=== PATIENT | female | born 1970 | race Caucasian/White ===

== ENCOUNTER → 2017-01-05 | Outpatient (CLI) | payer OTHER ==
[~2017-01-05] MED LIST: IOHEXOL 300 MG/ML 75 ML VIAL. IV ONE
--- NOTE | 2017-01-05 17:44 | RAD ---
Procedure: Venous Lower Extremity right. Clinical information: Right leg pain and swelling mostly around the knee joint. Date of Service: 01/05/2017. Comparison: None available. Technique: Color flow Doppler and Doppler spectral waveform analysis of the right lower extremity venous system were acquired. In addition, compression, augmentation and response to Valsalva techniques were employed. Findings: The right lower extremity veins demonstrate normal caliber and wall thickness. Color flow Doppler demonstrates normal venous flow without intraluminal thrombus. There is normal venous compression and distal augmentation. Doppler spectral waveform demonstrates normal venous respiratory phasicity. Moderately large right knee joint effusion with internal echoes within the joint effusion. There is also a 4.8 x 4.1 x 1.7 cm right Cano's cyst Impression: 1. Normal venous duplex study of the right lower extremity. No evidence of deep venous thrombosis. 2. Moderate right knee joint effusion. 3. Complex 1.8 x 4.1 x 1.7 cm right Cano's cyst. Electronically signed by: Devika Barber MD (01/05/2017 5:41 PM) [id number]
--- NOTE | 2017-01-05 17:54 | RAD ---
Indication: Elevated d-dimer and right leg swelling. Axial imaging through the chest was performed after the administration of intravenous contrast and utilizing the CT angiography protocol. Multiplanar, 3-D and mip reformations were also performed. One or more of the following individualized dose reduction techniques were utilized for this examination: 1. Automated exposure control 2. Adjustment of the mA and/or kV according to patient size 3. Use of iterative reconstruction technique No prior studies are available for comparison. Evaluation of the pulmonary arterial system is without evidence of thromboembolism. No filling defects are identified. The thoracic aorta is normal caliber. No dissection is identified. No pericardial or pleural fluid is identified. Parenchymal evaluation is without evidence of consolidation or mass. There does appear to be some slightly interstitial nodular parenchymal pattern, indeterminate. The upper abdomen is unremarkable. A right paratracheal lymph node is prominent at 17 mm. No hilar lymphadenopathy is detected. IMPRESSION: 1. No evidence of pulmonary embolism or thoracic aortic dissection. 2. Nonspecific interstitial nodular parenchymal pattern, likely on an infectious or inflammatory basis. There is an enlarged right paratracheal lymph node which may be reactive. Follow-up could be performed. Electronically signed by: Gil Suresh MD (01/05/2017 5:51 PM) [facility]
== END | disposition home or self-care (01) ==
LOC: US 16:47
PROVIDERS: ATTEND Nurse Practitioner Family
DX: M71.21 Synovial cyst of popliteal space [Baker], right knee (principal); M79.89 Other specified soft tissue disorders; R59.9 Enlarged lymph nodes, unspecified; R79.1 Abnormal coagulation profile
CPT/HCPCS: 71275; 93971; Q9967

== ENCOUNTER → 2017-01-05 | Outpatient (CLI) | payer OTHER ==
--- NOTE | 2017-01-05 15:43 | RAD ---
Indication pain. AP and lateral views of the right knee were obtained. There is medial joint space compartment narrowing and there are small osteophytes medially. There is a benign-appearing cystic lesion in the proximal tibia. This may be on a degenerative basis.. An acute bony finding is not seen. There is a moderately large joint effusion. There is patellofemoral narrowing. IMPRESSION: Degenerative change. No acute finding seen. Cystic lesion proximal tibial.
== END | disposition home or self-care (01) ==
LOC: DXRADRC 15:17
PROVIDERS: ATTEND Nurse Practitioner Family
DX: M17.11 Unilateral primary osteoarthritis, right knee (principal)
CPT/HCPCS: 73560

== ENCOUNTER → 2017-04-18 | Outpatient (CLI) | payer OTHER ==
--- NOTE | 2017-04-18 12:43 | RAD ---
Indication bilateral hip pain. Low back pain. AP and lateral views of the lumbar spine were obtained as well as a coned view targeted to the lumbosacral junction. There are significant degenerative changes at L2-3. There is disc space narrowing at this level with some associated degenerative endplate changes. Osteophytes are seen anteriorly and posteriorly at this level. Slight disc space narrowing is seen at L1-2. Some degenerative changes also seen, manifested as osteophyte formation, in the visualized lower thoracic spine. An acute finding is not seen. Alignment is unremarkable. There is very slight wedging of L1. Slight wedging of lower thoracic vertebral body segments is probably chronic IMPRESSION: Degenerative changes in the lumbar spine predominantly centered at L2-3
--- NOTE | 2017-04-18 15:32 | RAD ---
Indication: Bilateral hip pain and low back pain for 4 months. No known injury. Technique: Lateral view view of each hip and an AP pelvis is provided. No comparison is available. Findings: Bony pelvis is intact. There is no fracture or dislocation in either hip. There is no joint space narrowing. Presumed ligation clips are noted in the pelvis. Vascular calcifications are noted. Impression: Negative for fracture. No joint space narrowing or significant spurring in either hip apparent.
== END | disposition home or self-care (01) ==
LOC: DXRADRC 11:12
PROVIDERS: ATTEND Family Medicine
DX: M47.896 Other spondylosis, lumbar region (principal); M25.78 Osteophyte, vertebrae; M25.852 Other specified joint disorders, left hip; M25.851 Other specified joint disorders, right hip
CPT/HCPCS: 72100; 73521

== ENCOUNTER 2018-07-01 11:16 | Emergency (ER) | payer OTHER ==
[~2018-07-01] VITALS: Ht 160 cm; Wt 112.8 kg
[2018-07-01 11:50] VITALS: BP 128/69
[2018-07-01] MEDS ORDERED: TRAM50TA PO (11:50)
--- NOTE | 2018-07-01 14:03 | ED.ADGEN ---
Past History Past Medical History: Anxiety, Asthma, Dementia, Hypertension, Other Past Surgical History: , Tonsillectomy Alcohol Use: Occasionally Drug Use: None Adult General Chief Complaint Chief Complaint Abdominal wall pain HPI HPI Patient is [id number] female with history of mental abdominal wall hernia presents with persistent pain over ventral hernia site after cracking and popping a friend move the past 2 days. Patient denies bulging or mass in this region. No nausea vomiting diarrhea. No fever chills or sweats. On exam, the patient has a palpable non-incarcerated ventral hernia located left lateral abdomen and inferior to umbilicus. palpation to this area reproduces patient's complaints.[] Review of Systems Review of Systems Review symptoms as per history of present illness. All other review symptoms are negative. All other systems were reviewed and found to be within normal limits, except as documented in this note. Allergies Allergies Allergies Coded Allergies Type Severity Reaction Last Updated Verified azithromycin Allergy Unknown 01/05/17 Yes Physical Exam Physical Exam Constitutional: Well developed, well nourished, no acute distress, non-toxic appearance. [] HENT: Normocephalic, atraumatic, bilateral external ears normal, oropharynx moist, no oral exudates, nose normal. [] Eyes: PERRLA, EOMI, conjunctiva normal, no discharge. [] Neck: Normal range of motion, no tenderness, supple, no stridor. [] Cardiovascular:Heart rate regular rhythm, no murmur [] Lungs & Thorax: Bilateral breath sounds clear to auscultation [] Abdomen: Bowel sounds normal, soft, obese, quarter size hernia defect palpated to left abdomen lateral and inferior to the umbilicus. No bulging or herniated mass appreciated in this region [] Neurologic: Alert and oriented X 3, normal motor function, normal sensory function, no focal deficits noted. [] Psychologic: Affect normal, judgement normal, mood normal. [] Current Patient Data Vital Signs Vital Signs Date Time Temp Pulse Resp B/P (MAP) Pulse Ox O2 Delivery O2 Flow Rate FiO2 07/01/18 11:16 97.9 77 16 97 Room Air EKG EKG [] Radiology/Procedures Radiology/Procedures [] Course & Med Decision Making Course & Med Decision Making Pertinent Labs and Imaging studies reviewed. (See chart for details) [Chronic abdominal wall with non-incarcerated hernia. ] Final Impression Final Impression [1. Abdominal wall pain] Natasha Disclaimer Dragon Disclaimer This electronic medical record was generated, in whole or in part, using a voice recognition dictation system. JOAHNA GARCIA DO Jul 01, 2018 14:03
== END 2018-07-01 11:55 | disposition home or self-care (01) ==
LOC: ER 11:16
DX: R10.9 Unspecified abdominal pain (principal); G89.29 Other chronic pain; K43.9 Ventral hernia without obstruction or gangrene; J45.909 Unspecified asthma, uncomplicated; I10 Essential (primary) hypertension; Z98.890 Other specified postprocedural states; Z88.1 Allergy status to other antibiotic agents
CPT/HCPCS: 99283

== ENCOUNTER → 2019-02-05 | Outpatient (CLI) | payer MEDICAID ==
[~2019-02-05] MED LIST changes: -IOHEXOL 300 MG/ML 75 ML VIAL. IV ONE; +TRAM50TA PO
--- NOTE | 2019-02-05 16:28 | RAD ---
EXAM: Lumbar spine, 3 views. HISTORY: Pain. COMPARISON: 04/18/2017. FINDINGS: 3 views of the lumbar spine are obtained. There is minimal S-shaped thoracolumbar scoliosis. There is minimal lumbar hyperlordosis. There is degenerative endplate remodeling with disc space narrowing and osteophytosis at L2-L3. There is additional anterior predominant endplate remodeling and Schmorl's node formation within the visualized thoracic spine. There is chronic mild anterior wedging of L1, likely degenerative in etiology. There is facet arthropathy predominantly at the lumbosacral junction. There are fallopian tube closure devices overlying the pelvis. IMPRESSION: 1. Degenerative change primarily at L2-L3. This is similar compared to the prior study. 2. No acute osseous finding. Electronically signed by: Cecille Maldonado MD (02/05/2019 4:25 PM) [facility]
== END | disposition home or self-care (01) ==
LOC: DXRAD 15:26
PROVIDERS: ATTEND Family Medicine
DX: M47.816 Spondylosis without myelopathy or radiculopathy, lumbar region (principal); M48.061 Spinal stenosis, lumbar region without neurogenic claudication; M41.85 Other forms of scoliosis, thoracolumbar region; M12.88 Other specific arthropathies, not elsewhere classified, other specified site; M51.44 Schmorl's nodes, thoracic region
CPT/HCPCS: 72100

== ENCOUNTER 2019-07-02 18:43 | Emergency (ER) | payer MEDICAID ==
[~2019-07-02] VITALS: Ht 160 cm; Wt 118.0 kg
--- NOTE | 2019-07-02 18:46 | PHYS DOC ---
Past History Past Medical History: Anxiety, Asthma, Dementia, Hypertension, Other Past Surgical History: , Tonsillectomy Alcohol Use: Occasionally Drug Use: None Adult General Chief Complaint Chief Complaint: SHOULDER INJURY... " I was walkng my dog "Iris"...he is always in a big hurry to go nowhere... And he jerked my right arm really hard and: Right shoulder and back to feel like it was tearing loose muscles... It hurt so bad to move... " HPI HPI Patient is a 48 year old female who presents with above hx and complaints of right arm and shoulder injury. Injury occurred when her dog 'Iris' jerked her arm on the leash. Injury occurred occurred 2 days ago. Patient states pain has not improved. Patient localized pain in deltoid and right trapezius. Deltoid sensation is intact.. Distal neurovascular is equal in right hand as it is in left hand. Patient denies previous injury to this shoulder area patient. I get him history of immunosuppression. No recent travel. No other injuries. Patient is right-hand dominant. Review of Systems Review of Systems Constitutional: Denies fever or chills [] Eyes: Denies change in visual acuity, redness, or eye pain [] HENT: Denies nasal congestion or sore throat [] Respiratory: Denies cough or shortness of breath [] Cardiovascular: No additional information not addressed in HPI [] GI: Denies abdominal pain, nausea, vomiting, bloody stools or diarrhea [] : Denies dysuria or hematuria [] Musculoskeletal: Complaints are right shoulder and arm injury Integument: Denies rash or skin lesions [] Neurologic: Denies headache, focal weakness or sensory changes [] Endocrine: Denies polyuria or polydipsia [] All other systems were reviewed and found to be within normal limits, except as documented in this note. Family History Family History Noncontributory presentation Current Medications Current Medications See nursing for home medications Allergies Allergies Allergies Coded Allergies Type Severity Reaction Last Updated Verified azithromycin Allergy Unknown 01/05/17 Yes Physical Exam Physical Exam Constitutional: Moderate acute distress, non-toxic appearance. [] HENT: Normocephalic, atraumatic, bilateral external ears normal, oropharynx moist, no oral exudates, nose normal. [] Eyes: PERRLA, EOMI, conjunctiva normal, no discharge. [] Neck: Normal range of motion, no tenderness, supple, no stridor. [] Cardiovascular:Heart rate regular rhythm, no murmur [] Lungs & Thorax: Bilateral breath sounds equal apex scattered wheezes on auscultation [] Abdomen: Bowel sounds normal, soft, no tenderness, no masses, no pulsatile masses. Surgery scars. Obese. Skin: Warm, dry, no erythema, no rash. [] Back: No tenderness, no CVA tenderness. [] Extremities: No tenderness, no cyanosis, no clubbing, ROM intact, no edema. [] Except findings in right shoulder and upper arm as per history of present illness Neurologic: Alert and oriented X 3, normal motor function, normal sensory function, no focal deficits noted. [] Psychologic: Affect anxious, judgement normal, mood normal. [] EKG EKG [] Radiology/Procedures Radiology/Procedures [address] [address] IMAGING REPORT Signed PATIENT: CASEY VELEZ ACCOUNT: [id number] : 1970 LOCATION: ER AGE: 48 SEX: F EXAM STATUS: DEP ER ORD. PHYSICIAN: ИВАН BROWN MD REASON: injury walking her dog PROCEDURE: SHOULDER 2+V RIGHT Study: SHOULDER 2+V RIGHT Indication: Injury. Comparison: None. Findings: Maintained AC and glenohumeral joint alignment. Minimal arthrosis at the AC joint. No acute fracture. Impression: No acute osseous abnormality seen at the right shoulder. Electronically signed by: LORI BELLA MD (07/02/2019 11:52 PM) [facility] [id number] DICTATED AND SIGNED BY: LORI BELLA MD DATE: 07/02/19 2165 CC: ИВАН BROWN MD; DIEUDONNE VICK MD ~ [][address] [address] IMAGING REPORT Signed PATIENT: CASEY VELEZ ACCOUNT: [id number] : 1970 LOCATION: ER AGE: 48 SEX: F EXAM STATUS: DEP ER ORD. PHYSICIAN: ИВАН BROWN MD REASON: injury walking her dog PROCEDURE: CHEST PA & LATERAL CHEST PA LATERAL Technique: PA and lateral views of the chest were obtained. Clinical History: Comparison: None. Findings: The heart and pulmonary vasculature appear within normal limits. The lungs are clear. The pleural margins are clear. Impression: No acute chest process is seen. Electronically signed by: Mery Madrigal III, MD (07/02/2019 8:56 PM) [facility] DICTATED AND SIGNED BY: MERY MADRIGAL III, MD DATE: 07/02/192055 CC: ИВАН BROWN MD; DIEUDONNE VICK MD ~ Course & Med Decision Making Course & Med Decision Making Pertinent Labs and Imaging studies reviewed. (See chart for details) Patient use ice packs has needed. Rest arm. Wear sling. Take arm out of sling 4 times a day and do passive range of motion. Follow-up primary care. Take Tylenol and ibuprofen for pain. For marked pain may take Vicoprofen. Patient return if any concerns. Impression: 1. Right shoulder sprain strain [] Dragon Disclaimer Dragon Disclaimer This electronic medical record was generated, in whole or in part, using a voice recognition dictation system. Departure Departure: Disposition: 01 HOME/RESIDENCE PRIOR TO ADM Condition: STABLE Referrals: DIEUDONNE VICK MD (PCP) Scripts Hydrocodone/Ibuprofen (HYDROCODONE-IBUPROFEN 7.5-200 ) 1 Each Tablet 1 TAB PO PRN Q6HRS PRN for PAIN, #30 TAB 0 Refills Prov: ИВАН BROWN MD 07/02/19 Dragon Disclaimer This chart was dictated in whole or in part using Voice Recognition software in a busy, high-work load, and often noisy Emergency Department environment. It may contain unintended and wholly unrecognized errors or omissions. ИВАН BROWN MD Jul 02, 2019 18:46
[2019-07-02] MEDS ORDERED: ORPHENADRINE CITRATE 60 MG/2 ML VIAL. IM ONE (19:15)
[2019-07-02] MEDS ORDERED: KETOROLAC 60 MG/2 ML VIAL. IM ONE (19:15)
[2019-07-02] MEDS ORDERED: HYDR-1179 PO (20:23)
[2019-07-02 20:36] VITALS: BP 120/82
--- NOTE | 2019-07-02 20:59 | RAD ---
CHEST PA LATERAL Technique: PA and lateral views of the chest were obtained. Clinical History: Comparison: None. Findings: The heart and pulmonary vasculature appear within normal limits. The lungs are clear. The pleural margins are clear. Impression: No acute chest process is seen. Electronically signed by: Fili Ohara III, MD (07/02/2019 8:56 PM) [facility]
--- NOTE | 2019-07-02 23:55 | RAD ---
Study: SHOULDER 2+V RIGHT Indication: Injury. Comparison: None. Findings: Maintained AC and glenohumeral joint alignment. Minimal arthrosis at the AC joint. No acute fracture. Impression: No acute osseous abnormality seen at the right shoulder. Electronically signed by: LORI BELLA MD (07/02/2019 11:52 PM) [facility]
== END 2019-07-02 20:36 | disposition home or self-care (01) ==
LOC: ER 18:43
DX: S43.401A Unspecified sprain of right shoulder joint, initial encounter (principal); F41.9 Anxiety disorder, unspecified; J45.909 Unspecified asthma, uncomplicated; I10 Essential (primary) hypertension; Z88.1 Allergy status to other antibiotic agents; W54.1XXA Struck by dog, initial encounter; Y93.K1 Activity, walking an animal; Y92.89 Other specified places as the place of occurrence of the external cause; Y99.8 Other external cause status
CPT/HCPCS: 71046; 73030; 96372; 99284; J1885; J2360

== ENCOUNTER 2019-08-16 13:28 | Emergency (ER) | payer MEDICAID ==
[~2019-08-16] VITALS: Ht 160 cm; Wt 118.0 kg
[~2019-08-16 13:28] MED LIST changes: +HYDR-1179 PO
[2019-08-16] MEDS ORDERED: HYDR-3165 PO (13:55)
[2019-08-16] MEDS ORDERED: CYCL-331 PO (13:55)
[2019-08-16] MEDS ORDERED: PRED50TA PO (13:55)
--- NOTE | 2019-08-16 13:55 | PHYS DOC ---
Past History Past Medical History: Anxiety, Asthma, Dementia, Hypertension, Other Past Surgical History: , Tonsillectomy Alcohol Use: Occasionally Drug Use: None Adult General Chief Complaint Chief Complaint: BACK PAIN OR INJURY [facility] 49-year-old female presents via EMS with low back pain. The patient fell yesterday pushing a cart for driveway. She felt her knees. She tripped and fell again today going down to her knees and this pulled her back a second time. She now has moderate low back pain. She is complaining of pain over the bilateral sacroiliac joints. She is able to walk. She denies significant knee pain or bruising. The patient is a smoker. He denies diabetes. No significant history of previous low back problems. Review of Systems Review of Systems Constitutional: Denies fever or chills [] Eyes: Denies change in visual acuity, redness, or eye pain [] HENT: Denies nasal congestion or sore throat [] Respiratory: Denies cough or shortness of breath [] Cardiovascular: No additional information not addressed in HPI [] GI: Denies abdominal pain, nausea, vomiting, bloody stools or diarrhea [] : Denies dysuria or hematuria [] Musculoskeletal: Low back pain[] Integument: Denies rash or skin lesions [] Neurologic: Denies headache, focal weakness or sensory changes [] Endocrine: Denies polyuria or polydipsia [] All other systems were reviewed and found to be within normal limits, except as documented in this note. Allergies Allergies Allergies Coded Allergies Type Severity Reaction Last Updated Verified azithromycin Allergy Unknown 01/05/17 Yes Physical Exam Physical Exam Constitutional: Well developed, morbid obesity, well nourished, no acute distress, non-toxic appearance. [] HENT: Normocephalic, atraumatic, bilateral external ears normal, oropharynx moist, no oral exudates, nose normal. [] Eyes: PERRLA, EOMI, conjunctiva normal, no discharge. [] Neck: Normal range of motion, no tenderness, supple, no stridor. [] Cardiovascular:Heart rate regular rhythm, no murmur [] Lungs & Thorax: Bilateral breath sounds clear to auscultation [] Abdomen: Bowel sounds normal, soft, no tenderness, no masses, no pulsatile masses. [] Skin: Warm, dry, no erythema, no rash. [] Back: No tenderness over the bony prominences of the lumbar back. Bilateral sacroiliac tenderness.[] Extremities: No tenderness, no cyanosis, no clubbing, ROM intact, no edema. [] Neurologic: Alert and oriented X 3, normal motor function, normal sensory function, no focal deficits noted. [] Psychologic: Affect normal, judgement normal, mood normal. [] Current Patient Data Vital Signs Vital Signs Date Time Temp Pulse Resp B/P (MAP) Pulse Ox O2 Delivery O2 Flow Rate FiO2 08/16/19 13:40 98.3 77 18 96/66 (76) 94 Room Air EKG EKG [] Radiology/Procedures Radiology/Procedures [] Course & Med Decision Making Course & Med Decision Making Pertinent Labs and Imaging studies reviewed. (See chart for details) Patient appears to have bilateral sacroiliitis. I will treat her with 3 days of prednisone 50 mg, Flexeril, and a short course of [place]. I will give her Flexeril and [place] in the ER. She is stable for discharge at this time. [] Dragon Disclaimer Dragon Disclaimer This electronic medical record was generated, in whole or in part, using a voice recognition dictation system. Departure Departure: Impression: Primary Impression: Sacroiliac dysfunction Disposition: 01 HOME, SELF-CARE Condition: STABLE Referrals: DIEUDONNE VICK MD (PCP) Patient Instructions: Sacroiliac Joint Dysfunction Scripts Prednisone (PREDNISONE) 50 Mg Tablet 1 TAB PO DAILY for low back pain for 3 Days, #3 TAB Prov: JOHANA PHIPPS DO 08/16/19 Hydrocodone Bit/Acetaminophen (NORCO 5-325 TABLET) 1 Each Tablet 1 TAB PO PRN Q6HRS PRN for PAIN, #10 TAB 0 Refills Prov: JOHANA PHIPPS DO 08/16/19 Cyclobenzaprine Hcl (CYCLOBENZAPRINE HCL) 10 Mg Tablet 1 TAB PO TID PRN for MUSCLE SPASMS, #30 TAB Prov: JOHANA PHIPPS DO 08/16/19 JOHANA PHIPPS DO Aug 16, 2019 13:55
[2019-08-16 14:15] VITALS: BP 96/66
[2019-08-16] MEDS ORDERED: CYCLOBENZAPRINE 10 MG TABLET. PO ONE (14:15)
[2019-08-16] MEDS ORDERED: HYDROcodone/APAP 5/325MG 1 TAB TABLET PO ONE (14:15)
== END 2019-08-16 14:22 | disposition home or self-care (01) ==
LOC: ER 13:28
DX: M53.3 Sacrococcygeal disorders, not elsewhere classified (principal); J45.909 Unspecified asthma, uncomplicated; I10 Essential (primary) hypertension; Z88.1 Allergy status to other antibiotic agents; Z90.89 Acquired absence of other organs
CPT/HCPCS: 99283

== ENCOUNTER 2019-08-29 14:10 | Emergency (ER) | payer MEDICAID ==
[~2019-08-29] VITALS: Ht 160 cm; Wt 118.7 kg
[~2019-08-29 14:10] MED LIST changes: +CYCL-331 PO; +HYDR-3165 PO; +PRED50TA PO
--- NOTE | 2019-08-29 14:30 | PHYS DOC ---
Past History Past Medical History: Anxiety, Asthma, Dementia, Hypertension, Other Past Surgical History: , Tonsillectomy Alcohol Use: Occasionally Drug Use: None Adult General Chief Complaint Chief Complaint: MECHANICAL FALL HPI HPI Patient presents to the emergency department for evaluation. She states yesterday when walking across a street she lost her balance and fell down, landing on her knees bilaterally. She complains of bilateral knee pain, right greater than left. She denies serious head injury, neck pain, back injury, or loss of consciousness. She denies any numbness or weakness. She is able to ambulate, but palpation and movement of her knees worsen her pain. There are no alleviating factors to her symptoms. She did take 800 mg of ibuprofen prior to arrival. Her last tetanus was within the past year she reports. Review of Systems Review of Systems Constitutional: Denies fever or chills [] Eyes: Denies change in visual acuity, redness, or eye pain [] HENT: Denies nasal congestion or sore throat [] Respiratory: Denies cough or shortness of breath [] Cardiovascular: NThe patient denies any shortness of breath, chest pain, palpitations, or orthopnea [] GI: Denies abdominal pain, nausea, vomiting, bloody stools or diarrhea [] : Denies dysuria or hematuria [] Musculoskeletal: Denies back pain or joint pain, other than as noted in the history of present illness [] Integument: Denies rash or skin lesions [] Neurologic: Denies headache, focal weakness or sensory changes [] Allergies Allergies Allergies Coded Allergies Type Severity Reaction Last Updated Verified azithromycin Allergy Unknown 01/05/17 Yes Physical Exam Physical Exam PHYSICAL EXAM: HEENT: Atruamatic NECK: Supple, normal ROM, non-tender. CARDIAC: Regular Rate and Rhythm LUNGS: Clear Bilaterally EXTREMITIES: There is mild tenderness to palpation to the knees bilaterally, right greater than left, without focal bony tenderness to palpation, deformity, or significant soft tissue swelling. There is full range of motion in the knees bilaterally, with flexion and extension intact. Straight leg raise is normal bilaterally. The patient is ambulatory. Distal PMS is intact. There are superficial scratches, minor abrasions, on the anterior knees bilaterally. The remainder the extremities are atraumatic. BACK: There is no tenderness to palpation to the cervical, thoracic, or lumbar spine spine. EKG EKG [] Radiology/Procedures Radiology/Procedures PROCEDURE: KNEE BILAT 3V KNEE BILAT 3V History: Fall. Pain. Technique: 3 views bilateral knees. Comparison: January 05, 2017 Findings: Left knee: Normal alignment. No fracture. Moderate tricompartment knee DJD. Posterior calcified loose body. Vascular calcifications. No significant knee joint effusion. Anterior knee soft tissue swelling. Right knee: Lytic lesion within the posterior proximal right tibia with well-defined sclerotic rim measures 3.2 x 3.0 cm, unchanged compared to prior. Normal alignment. No fracture. Moderate medial patellofemoral compartment DJD. Vascular calcifications. No significant knee joint effusion. Impression: 1. No acute osseous abnormality. 2. Moderate bilateral knee DJD with calcified intra-articular loose body on the left. 3. Well-defined lytic lesion with sclerotic rim within the proximal right tibia, favor giant cell tumor, unchanged. Course & Med Decision Making Course & Med Decision Making Pertinent Imaging studies reviewed. (See chart for details) []Patient remains stable. I discussed test results, the need for close orthopedic follow-up, and return precautions. Dragon Disclaimer Dragon Disclaimer This electronic medical record was generated, in whole or in part, using a voice recognition dictation system. Departure Departure: Impression: Primary Impression: Knee contusion Disposition: HOME, SELF-CARE Condition: STABLE Referrals: DIEUDONNE VICK MD (PCP) Patient Instructions: Contusion Additional Instructions: Ibuprofen 400-600 mg every 6 hours may help improve your symptoms. Applying ice to the affected area may help improve your symptoms. Follow-up with orthopedics at [facility], call [phone] to schedule an appointment. TOMASA RODAS MD Aug 29, 2019 14:30
--- NOTE | 2019-08-29 15:24 | RAD ---
KNEE BILAT 3V History: Fall. Pain. Technique: 3 views bilateral knees. Comparison: January 05, 2017 Findings: Left knee: Normal alignment. No fracture. Moderate tricompartment knee DJD. Posterior calcified loose body. Vascular calcifications. No significant knee joint effusion. Anterior knee soft tissue swelling. Right knee: Lytic lesion within the posterior proximal right tibia with well-defined sclerotic rim measures 3.2 x 3.0 cm, unchanged compared to prior. Normal alignment. No fracture. Moderate medial patellofemoral compartment DJD. Vascular calcifications. No significant knee joint effusion. Impression: 1. No acute osseous abnormality. 2. Moderate bilateral knee DJD with calcified intra-articular loose body on the left. 3. Well-defined lytic lesion with sclerotic rim within the proximal right tibia, favor giant cell tumor, unchanged. Electronically signed by: Thierry Juares DO (08/29/2019 3:21 PM) [id number]
[2019-08-29 15:59] VITALS: BP 117/64
== END 2019-08-29 16:03 | disposition home or self-care (01) ==
LOC: ER 15:48
DX: S80.01XA Contusion of right knee, initial encounter (principal); S80.02XA Contusion of left knee, initial encounter; F41.9 Anxiety disorder, unspecified; J45.909 Unspecified asthma, uncomplicated; F03.90 Unspecified dementia, unspecified severity, without behavioral disturbance, psychotic disturbance, mood disturbance, and anxiety; I10 Essential (primary) hypertension; Z88.1 Allergy status to other antibiotic agents; W18.39XA Other fall on same level, initial encounter; Y93.01 Activity, walking, marching and hiking; Y92.488 Other paved roadways as the place of occurrence of the external cause; Y99.8 Other external cause status
CPT/HCPCS: 73562; 99283

== ENCOUNTER → 2019-12-26 | Outpatient (CLI) | payer MEDICAID ==
--- NOTE | 2019-12-26 11:11 | RAD ---
DATE: 12/26/2019 9:53 AM EXAM: DIGITAL DIAGNOSTIC BILATERAL, BREAST ultrasound RIGHT HISTORY: 49-year-old woman due for screening presents with palpable tenderness in the medial right breast. COMPARISON: None available. Bilateral full field craniocaudal and mediolateral oblique images were obtained using digital technique. A cleavage view was also obtained.. This study was interpreted with the benefit of Computerized Aided Detection (CAD). Targeted ultrasound of the areas of patient reported palpable tenderness was also performed. FINDINGS: Breast Density: FATTY The Breast Parenchyma is primarily fatty replaced. Breast parenchyma level density A. Patient's areas of palpable tenderness on self exam are marked with BBs at the medial inferior right breast, and in the presternal adipose tissue. No suspicious masses, microcalcifications or architectural distortion is present to suggest malignancy in either breast. There is no mammographic correlate to the area of palpable tenderness as reported by the patient on self exam. The visualized axillae are unremarkable. IMPRESSION: No mammographic evidence of malignancy. BI-RADS CATEGORY: 1 NEGATIVE RECOMMENDED FOLLOW-UP: 12M 12 MONTH FOLLOW-UP Annual screening mammography is recommended, unless clinically indicated sooner based on symptoms or change in physical exam. Recommend clinical management of patient's reported aneurysm palpable tenderness. PQRS compliance statement: Patient information was entered into a reminder system with a target due date 12/26/2020 for the next mammogram. Mammography is a sensitive method for finding small breast cancers, but it does not detect them all and is not a substitute for careful clinical examination. A negative mammogram does not negate a clinically suspicious finding and should not result in delay in biopsying a clinically suspicious abnormality. "Our facility is accredited by the [employer] Mammography Program."
== END ==
LOC: MAMMO 09:27
PROVIDERS: ATTEND Family Medicine
DX: N63.14 Unspecified lump in the right breast, lower inner quadrant (principal)
CPT/HCPCS: 76641; 77066

== ENCOUNTER → 2020-02-06 | Outpatient (CLI) | payer MEDICAID ==
--- NOTE | 2020-02-06 18:09 | RAD ---
Bilateral knees 3 views each INDICATION: Bilateral knee pain. Comparison 08/29/2019 bilateral knee x-rays TECHNIQUE: AP and lateral views of the bilateral knees were obtained. FINDINGS: Right knee shows marked medial compartment joint space narrowing and large subchondral cysts in the medial tibial spine and at the lateral tibial plateau. Subchondral cysts are also suggested in the lateral aspect of the patella. No fracture or aggressive osseous lesions are seen no joint effusion. Alignment is otherwise unremarkable. Soft tissues show incidental arterial calcifications. Left knee shows medial compartment joint space narrowing and bulky osteophytes on the medial femoral condyle. Smaller osteophytes in the lateral tibial plateau are seen along with early subchondral cystic change in the lateral tibial plateau. The lateral view shows marked patellofemoral joint space narrowing and osteophytic spurring at the superior pole of the patella. There is a large 1.5 cm loose body in the posterior knee. Arterial calcifications are present. IMPRESSION: Bilateral multicompartment degenerative changes affecting the patellofemoral compartment to the greatest extent in the left knee and the medial compartment to the greatest extent in the right knee Electronically signed by: Milana Leonard MD (02/06/2020 6:06 PM) [id number]
== END ==
LOC: DXRAD 15:34
PROVIDERS: ATTEND Family Medicine
DX: M17.0 Bilateral primary osteoarthritis of knee (principal); M25.762 Osteophyte, left knee; M25.761 Osteophyte, right knee
CPT/HCPCS: 73560

== ENCOUNTER 2020-04-05 20:21 | Emergency (ER) | payer MEDICAID ==
[~2020-04-05] VITALS: Ht 160 cm; Wt 124.2 kg
--- NOTE | 2020-04-05 20:44 | PHYS DOC ---
Past History Past Medical History: Arthritis, Dementia, Hypertension, Other Additional Past Medical Histor: scoliosis Past Surgical History: , Tonsillectomy Alcohol Use: None Drug Use: None General Adult EDM: Chief Complaint: KNEE INJURY HPI: HPI: ".. I slipped and fell on both of my knees..I already.. have bad knees.. and chronic pain in them.. they say I need knee joint replacement..." Patient is a 49 year old female who presents with above hx and in increased bilateral knee pain after fall and hitting both knees on the floor. Patient has been ambulatory since the fall but complains of increased pain in both knees. Patient is able to do straight leg lift. Pain tonight appears to be primarily in patella. Does have crepitation on range of motion. Patient does have a history of severe degenerative joint changes in both knees. Has been follow-up primary however is not complete follow-up with orthopedics for possible evaluat ion for knee replacement. Distal neurovascular appears grossly intact. No recent travel. No specific ill contacts. Patient normally follows with Dr. Munson. Review of Systems: Review of Systems: Constitutional: Denies fever or chills Eyes: Denies change in visual acuity HENT: Denies nasal congestion or sore throat Respiratory: Denies cough or shortness of breath Cardiovascular: Denies chest pain or edema GI: Denies abdominal pain, nausea, vomiting, bloody stools or diarrhea : Denies dysuria Musculoskeletal: Complains of increased knee pain after fall. History of chronic degenerative joint changes and knee pain Integument: Denies rash Neurologic: Denies headache, focal weakness or sensory changes Endocrine: Denies polyuria or polydipsia Lymphatic: Denies swollen glands Psychiatric: Denies depression or anxiety Heart Score: Risk Factors: Risk Factors: DM, Current or recent (<one month) smoker, HTN, HLP, family history of CAD, obesity. Risk Scores: Score 0 - 3: 2.5% MACE over next 6 weeks - Discharge Home Score 4 - 6: 20.3% MACE over next 6 weeks - Admit for Clinical Observation Score 7 - 10: 72.7% MACE over next 6 weeks - Early Invasive Strategies Family History: Family History: Noncontributory Current Medications: Current Meds: Current Medications Medications (Trade) Dose Ordered Sig/Maria Dolores Start Time Stop Time Status Last Admin Dose Admin Morphine Sulfate (Morphine 10mg Syringe) 10 mg 1X ONCE 04/05/20 20:45 04/05/20 20:46 UNV Allergies: Allergies: Allergies Coded Allergies Type Severity Reaction Last Updated Verified azithromycin Allergy Unknown 01/05/17 Yes Physical Exam: PE: Constitutional: Moderate acute distress, non-toxic appearance. [] HENT: Normocephalic, atraumatic, bilateral external ears normal, oropharynx moist, no oral exudates, nose normal. [] Eyes: PERRLA, EOMI, conjunctiva normal, no discharge. [] Neck: Normal range of motion, no tenderness, supple, no stridor. [] Cardiovascular:Heart rate regular rhythm, no murmur. PMI to the left Lungs & Thorax: Bilateral breath sounds good apex with few scattered wheezes on auscultation [] Abdomen: Bowel sounds normal, soft, no tenderness, no masses, no pulsatile masses. Obese. Old surgery scar Skin: Warm, dry, no erythema, no rash. Poor turgor Back: No tenderness, no CVA tenderness. Scoliosis Extremities: Bilateral knee tenderness, no cyanosis, no clubbing, guarded range of motion in knees due to pain, mild bilateral knee edema. [] Crepitation with range of motion of the knees. Keep but can do straight leg lift. Patient is ambulatory. Neurologic: Alert and oriented X 3, normal motor function, normal sensory function, no focal deficits noted. [] Psychologic: Affect anxious, judgement normal, mood normal. [] Current Patient Data: Vital Signs: Vital Signs Date Time Temp Pulse Resp B/P (MAP) Pulse Ox O2 Delivery O2 Flow Rate FiO2 04/05/20 20:25 98.0 84 18 151/95 (113) 98 Room Air EKG: EKG: [] Radiology/Procedures: Radiology/Procedures: [][address] [address] IMAGING REPORT Signed PATIENT: CASEY VELEZ ACCOUNT: [id number] : 1970 LOCATION: ER AGE: 49 SEX: F EXAM STATUS: DEP ER ORD. PHYSICIAN: ИВАН BROWN MD REASON: fall PROCEDURE: KNEE BILAT 4V KNEE BILAT 4V History: Reason: fall / Spl. Instructions: / History: Technique: 3 views bilateral knees. Comparison: February 06, 2020 Findings: Right knee: Well-defined lytic lesion within the proximal tibia multilobulated with sclerotic rim, unchanged. Normal alignment. No fracture. Moderate tricompartment right knee degenerative changes most prominent within the medial and patellofemoral compartments. No significant knee joint effusion. Vascular calcifications. Left knee: Normal alignment. No fracture. Moderate tricompartment left knee DJD most prominent in medial patellofemoral compartment. No significant knee joint effusion. Vascular calcifications. Impression: 1. No acute osseous abnormality. 2. Moderate tricompartment bilateral knee DJD, unchanged. 3. Well-defined lytic lesion within the right proximal tibia, unchanged. Electronically signed by: Thierry Juares DO (04/05/2020 9:59 PM) [facility] DICTATED AND SIGNED BY: THIERRY JUARES DO DATE: 04/05/202158 CC: ИВАН BROWN MD; DIEUDONNE MUNSON MD ~ Course & Med Decision Making: Course & Med Decision Making Pertinent Labs and Imaging studies reviewed. (See chart for details) Patient is ice packs as needed. May take Tylenol and ibuprofen for pain. May take Vicoprofen for marked discomfort. Must follow-up with primary care. Get referral for orthopedic evaluation. Wear Lavelle wrap.s Recommend patient use a walker. Impression: 1. Fall 2. Bilateral knee contusions 3. Bilateral marked degenerative joint changes to knees and cystic bone formation ( No acute fx noted tonight) [] Dragon Disclaimer: Dragon Disclaimer: This electronic medical record was generated, in whole or in part, using a voice recognition dictation system. Departure Departure: Disposition: 01 HOME/RESIDENCE PRIOR TO ADM Condition: STABLE Referrals: DIEUDONNE MUNSON MD (PCP) Scripts Hydrocodone/Ibuprofen (HYDROCODONE-IBUPROFEN 7.5-200 ) 1 Each Tablet 1 TAB PO PRN Q6HRS PRN for PAIN, #30 TAB 0 Refills Prov: ИВАН BROWN MD 04/05/20 Draglizeth Disclaimer This chart was dictated in whole or in part using Voice Recognition software in a busy, high-work load, and often noisy Emergency Department environment. It may contain unintended and wholly unrecognized errors or omissions. ИВАН BROWN MD Apr 05, 2020 20:43
[2020-04-05] MEDS ORDERED: MORPHINE SULFATE 10 MG/ML SYRINGE. SQ ONE (20:45)
[2020-04-05 21:24] VITALS: BP 138/80
[2020-04-05] MEDS ORDERED: HYDR-1179 PO (21:36)
--- NOTE | 2020-04-05 22:02 | RAD ---
KNEE BILAT 4V History: Reason: fall / Spl. Instructions: / History: Technique: 3 views bilateral knees. Comparison: February 06, 2020 Findings: Right knee: Well-defined lytic lesion within the proximal tibia multilobulated with sclerotic rim, unchanged. Normal alignment. No fracture. Moderate tricompartment right knee degenerative changes most prominent within the medial and patellofemoral compartments. No significant knee joint effusion. Vascular calcifications. Left knee: Normal alignment. No fracture. Moderate tricompartment left knee DJD most prominent in medial patellofemoral compartment. No significant knee joint effusion. Vascular calcifications. Impression: 1. No acute osseous abnormality. 2. Moderate tricompartment bilateral knee DJD, unchanged. 3. Well-defined lytic lesion within the right proximal tibia, unchanged. Electronically signed by: Thierry Juares DO (04/05/2020 9:59 PM) [facility]
== END 2020-04-05 21:50 | disposition home or self-care (01) ==
LOC: ER 20:21
DX: S80.02XA Contusion of left knee, initial encounter (principal); S80.01XA Contusion of right knee, initial encounter; G89.29 Other chronic pain; M19.90 Unspecified osteoarthritis, unspecified site; F03.90 Unspecified dementia, unspecified severity, without behavioral disturbance, psychotic disturbance, mood disturbance, and anxiety; I10 Essential (primary) hypertension; Z88.1 Allergy status to other antibiotic agents; W18.39XA Other fall on same level, initial encounter; Y93.89 Activity, other specified; Y92.89 Other specified places as the place of occurrence of the external cause; Y99.8 Other external cause status
CPT/HCPCS: 73564; 96372; 99283; J2270

== ENCOUNTER 2020-04-15 18:58 | Emergency (ER) | payer MEDICAID ==
[~2020-04-15] VITALS: Ht 160 cm; Wt 124.2 kg
[2020-04-15 19:00] VITALS: BP 126/81
--- NOTE | 2020-04-15 19:35 | PHYS DOC ---
Past History Past Medical History: Arthritis, Dementia, Hypertension, Other Additional Past Medical Histor: scoliosis (RASHAWN WILDER APRN) Past Surgical History: , Tonsillectomy (RASHAWN WILDER APRN) Alcohol Use: None Drug Use: None (RASHAWN WILDER APRN) Adult General Chief Complaint Chief Complaint: KNEE INJURY HPI HPI Patient is a 49-year-old female presents emergency department with complaints of bilateral knee pain. Patient reports she was seen here 10 days ago and had x- rays of both of her knees. She denies any recent fall, twisting, hyperextension, or flexion injuries. She denies any redness, warmth, or swelling of her knees. She denies any numbness, tingling, or weakness of her lower extremities. Patient states that she took all of the Vicoprofen that were previously prescribed. She denies following up with orthopedic provider. Currently she rates her pain a 10 out of 10 on the pain scale, she denies any alleviating factors, pain is worse with weightbearing and movement. (RASHAWN WILDER APRN) Review of Systems Review of Systems Constitutional: Denies fever or chills [] Musculoskeletal: See HPI Integument: Denies rash or skin lesions [] Neurologic: Denies focal weakness or sensory changes [] Complete ROS is negative unless otherwise stated in the HPI. (RASHAWN WILDER APRN) Allergies Allergies Allergies Coded Allergies Type Severity Reaction Last Updated Verified azithromycin Allergy Unknown 01/05/17 Yes (RASHAWN WILDER APRN) Physical Exam Physical Exam Constitutional: Well developed, well nourished, no acute distress, non-toxic appearance, morbidly obese. [] HENT: Normocephalic, atraumatic, bilateral external ears normal, nose normal. [] Eyes: PERRLA, EOMI, conjunctiva normal, no discharge. [] Neck: Normal range of motion, no stridor. [] Cardiovascular:Heart rate regular rhythm Lungs & Thorax: Respirations even and unlabored, no retractions, no respiratory distress Skin: Warm, dry, no erythema, no rash. [] Extremities: Bilateral knees: No erythema, no warmth, no obvious deformity, no crepitus, no cyanosis, ROM intact, no edema. [] Neurologic: Alert and oriented X 3, no focal deficits noted. [] Psychologic: Affect normal, judgement normal, mood normal. [] (RASHAWN WILDER APRN) EKG EKG [] (RASHAWN WILDER APRN) Radiology/Procedures Radiology/Procedures [] (RASHAWN WILDER APRN) Course & Med Decision Making Course & Med Decision Making Pertinent Labs and Imaging studies reviewed. (See chart for details) 49-year-old female presents emergency room with complaints of chronic knee pain. I advised patient that without any new injury I will not be ordering x-rays. I encouraged patient to take Tylenol or ibuprofen as needed for pain. I also recommended rest and application of ice as needed for comfort. I will provide the patient with Dr. Mery Norton's information. Patient is to follow-up with orthopedics for further treatment and evaluation of her chronic knee pain. Patient verbalized an understanding of home care, medications, follow-up, and r eturn to ED instructions and was in agreement with the plan of care. [] (RASHAWN WILDER APRN) Dragon Disclaimer Dragon Disclaimer This electronic medical record was generated, in whole or in part, using a voice recognition dictation system. (RASHAWN WILDER APRN) Departure Departure: Impression: Primary Impression: Bilateral chronic knee pain Disposition: 01 DC HOME SELF CARE/HOMELESS Condition: STABLE Referrals: MERY NORTON MD Patient Instructions: Arthritis, Nonspecific, [id number], Knee Pain, [id number] Additional Instructions: You may take Tylenol or ibuprofen as needed for pain. Recommend application of ice, elevation, and rest of affected extremity. Call Dr. Norton's office to schedule a follow-up appointment tomorrow. Return to the ER if your symptoms worsen. Attending Signature Attending Signature I have reviewed the PA/LEGISLATIVE ADVOCATE's note and plan of care. I was available for consultation as needed during the patient's visit in the emergency department. I agree with the clinical impression, plan, and disposition. (RADHA COLBERT DO) RASHAWN WILDER APRN Apr 15, 2020 19:35 RADHA COLBERT DO Apr 16, 2020 00:08
== END 2020-04-15 19:40 | disposition home or self-care (01) ==
LOC: ER 18:58
DX: G89.29 Other chronic pain (principal); M25.562 Pain in left knee; M25.561 Pain in right knee; M19.90 Unspecified osteoarthritis, unspecified site; F03.90 Unspecified dementia, unspecified severity, without behavioral disturbance, psychotic disturbance, mood disturbance, and anxiety; I10 Essential (primary) hypertension; Z88.1 Allergy status to other antibiotic agents
CPT/HCPCS: 99283

== ENCOUNTER → 2020-04-17 | Outpatient (CLI) | payer MEDICAID ==
[2020-04-15 19:00] VITALS: BP 126/81
--- NOTE | 2020-04-17 13:59 | RAD ---
Three-view lumbar spine radiographs 04/17/2020 CLINICAL HISTORY: Low back pain. AP and two lateral digital radiographs of the lumbar spine were obtained. Minimal S-shaped curvature of the thoracolumbar spine is seen. Very mild anterolisthesis of L4 in relation to L5 is noted. Degenerative changes are seen involving the lower thoracic and throughout the lumbar disc spaces consisting of varying degrees of disc space narrowing, vertebral endplate sclerosis and mild to moderate anterior and posterior vertebral body osteophyte formation. Degenerative changes are seen involving the facet joints involving the mid and lower lumbar disc spaces. No acute fracture or subluxation is seen. Scattered atherosclerotic calcification of the abdominal aorta and its branches is noted. IMPRESSION: Degenerative changes are seen involving the lower thoracic and throughout the lumbar spine as discussed above. No acute osseous abnormality is seen. Electronically signed by: Tommy Crawford MD (04/17/2020 1:56 PM) [id number]
--- NOTE | 2020-04-17 14:03 | RAD ---
Three-view bilateral shoulder radiographs 04/17/2020 CLINICAL HISTORY: Bilateral shoulder pain. AP internal and external rotation and transscapular digital radiographs of both shoulders were obtained. No fracture or dislocation of either shoulder is seen. Mild to moderate degenerative changes are seen involving both SI joints and both glenohumeral joints. These consist of joint compartment narrowing, subchondral sclerosis and associated osteophyte formation. IMPRESSION: Degenerative changes are seen involving both shoulders as discussed above. No acute osseous abnormality is seen. Electronically signed by: Tommy Crawford MD (04/17/2020 2:00 PM) [id number]
== END ==
LOC: DXRAD 12:15
PROVIDERS: ATTEND Physician Assistant
DX: M19.012 Primary osteoarthritis, left shoulder (principal); M19.011 Primary osteoarthritis, right shoulder; M47.25 Other spondylosis with radiculopathy, thoracolumbar region; G89.29 Other chronic pain; I70.0 Atherosclerosis of aorta; M25.78 Osteophyte, vertebrae
CPT/HCPCS: 72100; 73030

== ENCOUNTER 2020-06-29 18:13 | Emergency (ER) | payer MEDICAID ==
[~2020-06-29] VITALS: Ht 160 cm; Wt 124.2 kg
[2020-06-29 18:15] VITALS: BP 154/100
[2020-06-29] MEDS ORDERED: DEXAMETHASONE 4 MG TABLET PO ONE (18:30)
[2020-06-29] MEDS ORDERED: oxyCODONE/APAP 5/325 1 TAB TABLET PO ONE (18:30)
[2020-06-29] MEDS ORDERED: PRED20TA PO (18:32)
[2020-06-29] MEDS ORDERED: OXYC-325 PO (18:32)
--- NOTE | 2020-06-29 18:32 | PHYS DOC ---
Past History Past Medical History: Anxiety, Arthritis, Dementia, Hypertension, Other Additional Past Medical Histor: scoliosis Past Surgical History: , Tonsillectomy, Tubal ligation Alcohol Use: None Drug Use: None General Adult EDM: Chief Complaint: KNEE INJURY HPI: HPI: Patient is a [age] year old [sex] who presents with [] Review of Systems: Review of Systems: Constitutional: Denies fever or chills Eyes: Denies change in visual acuity HENT: Denies nasal congestion or sore throat Respiratory: Denies cough or shortness of breath Cardiovascular: Denies chest pain or edema GI: Denies abdominal pain, nausea, vomiting, bloody stools or diarrhea : Denies dysuria Musculoskeletal: Denies back pain or joint pain Integument: Denies rash Neurologic: Denies headache, focal weakness or sensory changes Endocrine: Denies polyuria or polydipsia Lymphatic: Denies swollen glands Psychiatric: Denies depression or anxiety Allergies: Allergies: Allergies Coded Allergies Type Severity Reaction Last Updated Verified azithromycin Allergy Unknown 01/05/17 Yes Physical Exam: PE: Constitutional: Well developed, well nourished, no acute distress, non-toxic appearance. [] HENT: Normocephalic, atraumatic, bilateral external ears normal, oropharynx moist, no oral exudates, nose normal. [] Eyes: PERRLA, EOMI, conjunctiva normal, no discharge. [] Neck: Normal range of motion, no tenderness, supple, no stridor. [] Cardiovascular:Heart rate regular rhythm, no murmur [] Lungs & Thorax: Bilateral breath sounds clear to auscultation [] Abdomen: Bowel sounds normal, soft, no tenderness, no masses, no pulsatile masses. [] Skin: Warm, dry, no erythema, no rash. [] Back: No tenderness, no CVA tenderness. [] Extremities: No tenderness, no cyanosis, no clubbing, ROM intact, no edema. [] Neurologic: Alert and oriented X 3, normal motor function, normal sensory function, no focal deficits noted. [] Psychologic: Affect normal, judgement normal, mood normal. [] Current Patient Data: Vital Signs: Vital Signs Date Time Temp Pulse Resp B/P (MAP) Pulse Ox O2 Delivery O2 Flow Rate FiO2 06/29/20 18:15 98.8 98 20 154/100 (118) 97 Room Air EKG: EKG: [] Radiology/Procedures: Radiology/Procedures: [] Heart Score: Risk Factors: Risk Factors: DM, Current or recent (<one month) smoker, HTN, HLP, family history of CAD, obesity. Risk Scores: Score 0 - 3: 2.5% MACE over next 6 weeks - Discharge Home Score 4 - 6: 20.3% MACE over next 6 weeks - Admit for Clinical Observation Score 7 - 10: 72.7% MACE over next 6 weeks - Early Invasive Strategies Course & Med Decision Making: Course & Med Decision Making Pertinent Labs and Imaging studies reviewed. (See chart for details) [] Dragon Disclaimer: Dragon Disclaimer: This electronic medical record was generated, in whole or in part, using a voice recognition dictation system. Departure Departure: Impression: Primary Impression: Bilateral chronic knee pain Disposition: 01 DC HOME SELF CARE/HOMELESS Condition: STABLE Referrals: DIEUDONNE VICK MD (PCP) STACY STEARNS Jr. PAC MERY WESTON MD Patient Instructions: Chronic Pain, Knee Pain, [id number], Osteoarthritis Scripts Oxycodone HCl/Acetaminophen (Percocet 5-325 mg Tablet) 1 Each Tablet 0.5-1 TAB PO Q6HRS PRN for PAIN MDD 2 Tablet(s), #10 TAB 0 Refills Prov: RADHA COLBERT DO 06/29/20 Prednisone (PREDNISONE) 20 Mg Tablet 2 TAB PO DAILY for Inflammation, #8 TAB Prov: RADHA COLBERT DO 06/29/20 RADHA COLBERT DO Jun 29, 2020 18:32
== END 2020-06-29 18:51 | disposition home or self-care (01) ==
LOC: ER 18:13
DX: G89.29 Other chronic pain (principal); M25.562 Pain in left knee; M25.561 Pain in right knee; F41.9 Anxiety disorder, unspecified; M19.90 Unspecified osteoarthritis, unspecified site; F03.90 Unspecified dementia, unspecified severity, without behavioral disturbance, psychotic disturbance, mood disturbance, and anxiety; I10 Essential (primary) hypertension; Z88.1 Allergy status to other antibiotic agents
CPT/HCPCS: 99283; J8540

== ENCOUNTER → 2020-08-03 | Outpatient (CLI) | payer MEDICAID ==
[~2020-08-03] MED LIST changes: +OXYC-325 PO; +PRED20TA PO
--- NOTE | 2020-08-04 17:34 | RAD ---
XR KNEE_AP BILAT STANDING 08/03/2020 2:07 PM INDICATION: Bilateral knee pain COMPARISON: None available. TECHNIQUE: Standing AP view of the knees are provided. FINDINGS/ IMPRESSION: 1. No acute fracture or dislocation. Limited evaluation for knee joint effusion given AP view. 2. Severe osteoporosis of the medial femorotibial compartment of the right knee with joint space narr owing, marginal osteophytosis and subcortical sclerosis. 3. Moderate medial femorotibial osteophyte ptosis of the left knee. Mild lateral femorotibial osteopo rosis of the left knee. There is fragmentation superior aspect of the patella which could reflect seq uela of remote trauma. Electronically signed by: Sol Hendrickson MD (08/04/2020 5:32 PM) [id number]
== END ==
LOC: RAD 13:51
PROVIDERS: ATTEND Physician Assistant
DX: M81.8 Other osteoporosis without current pathological fracture (principal); M25.78 Osteophyte, vertebrae
CPT/HCPCS: 73565

== ENCOUNTER 2020-11-29 14:45 | Emergency (ER) | payer MEDICAID ==
[~2020-11-29] VITALS: Ht 149.9 cm; Wt 124.2 kg
[2020-11-29] MEDS ORDERED: HYDROcodone/APAP 5/325MG 1 TAB TABLET PO ONE (15:15)
[2020-11-29] MEDS ORDERED: CYCLOBENZAPRINE 10 MG TABLET. PO ONE (15:15)
--- NOTE | 2020-11-29 15:56 | RAD ---
XR LUMBAR SPINE 2-3V DATE: 11/29/2020 3:21 PM INDICATION: Reason: fall, pain / Spl. Instructions: / History: COMPARISON: None. FINDINGS: Five non-rib bearing lumbar-type vertebral bodies are present. Bones/Alignment: No evidence of acute compression fracture. 2 mm anterolisthesis at L4-5 Joints: Multilevel degenerative disc disease, worst and severe at L2-3 Miscellaneous: None. IMPRESSION: No evidence of acute compression fracture. Severe degenerative disc disease at L2-3. Electronically signed by: Jaydon Dillon MD (11/29/2020 3:54 PM) [id number]
--- NOTE | 2020-11-29 16:13 | PHYS DOC ---
Past History Past Medical History: Anxiety, Arthritis, Dementia, Hypertension, Other Additional Past Medical Histor: scoliosis Past Surgical History: , Hysterectomy, Oophorectomy, Tonsillectomy, Tubal ligation Smoking: Cigarettes Alcohol Use: None Drug Use: None Social History Narrative: hx of heroin use 8 yrs ago General Adult EDM: Chief Complaint: BACK PAIN OR INJURY HPI: HPI: 50-year-old female presents with low back pain. Patient fell several days ago and felt like her back was tight. She has been doing stretching and now she has increased pain. She is worried about "tearing a muscle. I can feel them being pulled." She denies numbness or tingling in her legs. She also complains of bilateral knee pain, but states that this has been going on for a long time. Denies any direct trauma to the knees in the last few days. She is able to walk though it is painful. Review of Systems: Review of Systems: Constitutional: Denies fever or chills Eyes: Denies change in visual acuity HENT: Denies nasal congestion or sore throat Respiratory: Denies cough or shortness of breath Cardiovascular: Denies chest pain or edema GI: Denies abdominal pain, nausea, vomiting, bloody stools or diarrhea : Denies dysuria Musculoskeletal: Low back pain, bilateral knee pain Integument: Denies rash Neurologic: Denies headache, focal weakness or sensory changes Endocrine: Denies polyuria or polydipsia Lymphatic: Denies swollen glands Psychiatric: Denies depression or anxiety Current Medications: Current Meds: Current Medications Medications (Trade) Dose Ordered Sig/Maria Dolores Start Time Stop Time Status Last Admin Dose Admin Acetaminophen/ Hydrocodone Bitart (Lortab 5/325) 1 tab 1X ONCE 11/29/20 15:15 11/29/20 15:23 DC 11/29/20 15:24 1 TAB Cyclobenzaprine HCl (Flexeril) 10 mg 1X ONCE 11/29/20 15:15 11/29/20 15:23 DC 11/29/20 15:24 10 MG Allergies: Allergies: Allergies Coded Allergies Type Severity Reaction Last Updated Verified azithromycin Allergy Unknown 11/29/20 Yes Physical Exam: PE: Constitutional: Well developed, well nourished, morbidly obese, no acute distress, non-toxic appearance. [] HENT: Normocephalic, atraumatic, bilateral external ears normal, oropharynx moist, no oral exudates, nose normal. [] Eyes: PERRLA, EOMI, conjunctiva normal, no discharge. [] Neck: Normal range of motion, no tenderness, supple, no stridor. [] Cardiovascular:Heart rate regular rhythm, no murmur [] Lungs & Thorax: Bilateral breath sounds clear to auscultation [] Abdomen: Bowel sounds normal, soft, no tenderness, no masses, no pulsatile masses. [] Skin: Warm, dry, no erythema, no rash. [] Back: Lumbar paraspinal muscle spasm, no bony tenderness, no tenderness over the sacroiliac joints. [] Extremities: No tenderness, no cyanosis, no clubbing, ROM intact, no edema. [] Neurologic: Alert and oriented X 3, normal motor function, normal sensory function, no focal deficits noted. [] Psychologic: Affect normal, judgement normal, mood normal. [] Current Patient Data: Vital Signs: Vital Signs Date Time Temp Pulse Resp B/P (MAP) Pulse Ox O2 Delivery O2 Flow Rate FiO2 11/29/20 15:56 16 Room Air 11/29/20 14:45 97.7 89 139/88 (105) 93 EKG: EKG: [] Radiology/Procedures: Radiology/Procedures: [] Heart Score: C/O Chest Pain: N/A Risk Factors: Risk Factors: DM, Current or recent (<one month) smoker, HTN, HLP, family history of CAD, obesity. Risk Scores: Score 0 - 3: 2.5% MACE over next 6 weeks - Discharge Home Score 4 - 6: 20.3% MACE over next 6 weeks - Admit for Clinical Observation Score 7 - 10: 72.7% MACE over next 6 weeks - Early Invasive Strategies Course & Med Decision Making: Course & Med Decision Making Pertinent Labs and Imaging studies reviewed. (See chart for details) The patient's x-ray is negative for acute findings. She has degenerative change. I believe she likely strained her back and is now having reflux spasm. I have given her [place] and Flexeril in the ED. I will discharge her with a prescription for both. She should consider physical therapy. She is stable for discharge at this time. [] Natasha Disclaimer: Natasha Disclaimer: This electronic medical record was generated, in whole or in part, using a voice recognition dictation system. Departure Departure: Impression: Primary Impression: Lumbar spine strain Qualified Codes: S39.012A - Strain of muscle, fascia and tendon of lower back, initial encounter Disposition: HOME / SELF CARE / HOMELESS Condition: STABLE Referrals: DIEUDONNE VICK MD (PCP) Patient Instructions: Low Back Strain with [facility] Hydrocodone/Acetaminophen (Hydrocodone-Acetamin 5-325 mg) 1 Each Tablet 1 EACH PO Q4-6HRS PRN for PAIN, #10 TAB Prov: JOHANA PHIPPS DO 11/29/20 Cyclobenzaprine Hcl (CYCLOBENZAPRINE HCL) 10 Mg Tablet 1 TAB PO TID PRN for MUSCLE SPASMS, #30 TAB Prov: JOHANA PHIPPS DO 11/29/20 JOHANA PHIPPS DO November 29, 2020 16:13
[2020-11-29] MEDS ORDERED: HYDR-2759 PO (16:26)
[2020-11-29] MEDS ORDERED: CYCL-331 PO (16:26)
[2020-11-29 16:36] VITALS: BP 126/87
== END 2020-11-29 16:36 | disposition home or self-care (01) ==
LOC: ER 14:45
DX: S39.012A Strain of muscle, fascia and tendon of lower back, initial encounter (principal); M62.830 Muscle spasm of back; M25.561 Pain in right knee; M25.562 Pain in left knee; F41.9 Anxiety disorder, unspecified; M19.90 Unspecified osteoarthritis, unspecified site; F03.90 Unspecified dementia, unspecified severity, without behavioral disturbance, psychotic disturbance, mood disturbance, and anxiety; I10 Essential (primary) hypertension; F17.210 Nicotine dependence, cigarettes, uncomplicated; Z88.1 Allergy status to other antibiotic agents; Z98.890 Other specified postprocedural states; Z90.710 Acquired absence of both cervix and uterus; Z98.51 Tubal ligation status; Z90.722 Acquired absence of ovaries, bilateral; W18.39XA Other fall on same level, initial encounter; Y93.89 Activity, other specified; Y92.89 Other specified places as the place of occurrence of the external cause; Y99.8 Other external cause status
CPT/HCPCS: 72100; 99284

== ENCOUNTER 2020-12-20 14:45 | Emergency (ER) | payer MEDICAID ==
[~2020-12-20] VITALS: Ht 160 cm; Wt 132.0 kg
[~2020-12-20 14:45] MED LIST changes: +HYDR-2759 PO
[2020-12-20 14:46] VITALS: BP 143/77
[2020-12-20] MEDS ORDERED: ALPRAZolam 0.25 MG TABLET PO ONE (15:15)
[2020-12-20] MEDS ORDERED: ONDANSETRON ODT 4 MG TAB.RAPDIS PO ONE (15:15)
--- NOTE | 2020-12-20 15:17 | PHYS DOC ---
Past History Past Medical History: Anxiety, Arthritis, Dementia, Depression, Hypertension, Other Additional Past Medical Histor: scoliosis (MARCIA HUITRON APRN) Past Surgical History: , Hysterectomy, Oophorectomy, Tonsillectomy, Tubal ligation (MARCIA HUITRON APRN) Smoking: Cigarettes Alcohol Use: None Drug Use: None (MARCIA HUITRON APRN) Attending Co-Sign The patient was seen and interviewed as well as examined at the bedside. The [facility] rt was reviewed. The case was discussed. Agree with the plan of care. (JOHANA PHIPPS DO) General Adult EDM: Chief Complaint: ANXIETY/PANIC ATTACK HPI: HPI: Patient is a 50-year-old female presents with anxiety and panic attack. Patient states that she has a history of anxiety. "I live by myself and sometimes I get anxious". Patient reports that she takes Valium and an antidepressant at home but it was not helping today. Patient also reports nausea. Denies vomiting or diarrhea. Denies fevers. Patient has a history of hypertension, anxiety, chronic knee pain. (MARCIA HUITRON APRN) Review of Systems: Review of Systems: Constitutional: Denies fever or chills Eyes: Denies change in visual acuity HENT: Denies nasal congestion or sore throat Respiratory: Denies cough or shortness of breath Cardiovascular: Denies chest pain or edema GI: Reports nausea. Denies vomiting/diarrhea, abdominal pain. : Denies dysuria Musculoskeletal: Denies back pain or joint pain Integument: Denies rash Neurologic: Denies headache, focal weakness or sensory changes Endocrine: Denies polyuria or polydipsia Lymphatic: Denies swollen glands Psychiatric: Reports anxiety and depression (MARCIA HUITRON APRN) Current Medications: Current Meds: Current Medications Medications (Trade) Dose Ordered Sig/Maria Dolores Start Time Stop Time Status Last Admin Dose Admin Alprazolam (Xanax) 0.5 mg 1X ONCE 12/20/20 15:15 12/20/20 15:16 Ondansetron HCl (Zofran Odt) 4 mg 1X ONCE 12/20/20 15:15 12/20/20 15:16 (MARCIA HUITRON APRN) Allergies: Allergies: Allergies Coded Allergies Type Severity Reaction Last Updated Verified azithromycin Allergy Unknown 11/29/20 Yes (MARCIA HUITRON APRN) Physical Exam: PE: Constitutional: Well developed, well nourished, no acute distress, non-toxic appearance. [] HENT: Normocephalic, atraumatic, bilateral external ears normal, oropharynx moist, no oral exudates, nose normal. [] Eyes: PERRLA, EOMI, conjunctiva normal, no discharge. [] Neck: Normal range of motion, no tenderness, supple, no stridor. [] Cardiovascular:Heart rate regular rhythm, no murmur [] Lungs & Thorax: Bilateral breath sounds clear to auscultation [] Abdomen: Bowel sounds normal, soft, no tenderness, no masses, no pulsatile masses. [] Skin: Warm, dry, no erythema, no rash. [] Back: No tenderness, no CVA tenderness. [] Extremities: No tenderness, no cyanosis, no clubbing, ROM intact, no edema. [] Neurologic: Alert and oriented X 3, normal motor function, normal sensory funct ion, no focal deficits noted. [] Psychologic: Anxious, tearful (MARCIA HUITORN APRN) Current Patient Data: Vital Signs: Vital Signs Date Time Temp Pulse Resp B/P (MAP) Pulse Ox O2 Delivery O2 Flow Rate FiO2 12/20/20 14:46 97.7 83 20 143/77 (99) 92 Room Air (MARCIA HUITRON APRN) EKG: EKG: [] (MARCIA HUITRON APRN) Radiology/Procedures: Radiology/Procedures: [] (MARCIA HUITRON APRN) Heart Score: C/O Chest Pain: No Risk Factors: Risk Factors: DM, Current or recent (<one month) smoker, HTN, HLP, family history of CAD, obesity. Risk Scores: Score 0 - 3: 2.5% MACE over next 6 weeks - Discharge Home Score 4 - 6: 20.3% MACE over next 6 weeks - Admit for Clinical Observation Score 7 - 10: 72.7% MACE over next 6 weeks - Early Invasive Strategies (MARCIA HUITRON APRN) Course & Med Decision Making: Course & Med Decision Making Pertinent Labs and Imaging studies reviewed. (See chart for details) [] 50-year-old female presents with anxiety and panic attack. Patient has a prescription for Valium but states it was not working. Patient given 0.50 of Xanax in the emergency room to treat anxiety. Patient is also reporting nausea. 4 mg of Zofran given. Patient hemodynamically stable. Patient's PCP is Dr. Vick. Discussed with patient that she will need to follow-up with Dr. Vick this week for further evaluation and management of symptoms. Patient is appreciative and states that she understands. (MARCIA HUITRON APRN) Dragon Disclaimer: Dragon Disclaimer: This electronic medical record was generated, in whole or in part, using a voice recognition dictation system. (MARCIA HUITRON APRN) Attending Co-Sign The patient was seen and interviewed as well as examined at the bedside. The chart was reviewed. The case was discussed. Agree with the plan of care. (JOHANA PHIPPS DO) Departure Departure: Impression: Primary Impression: Anxiety Disposition: 01 HOME / SELF CARE / HOMELESS Condition: STABLE Referrals: DIEUDONNE VICK MD (PCP) Patient Instructions: Anxiety and Panic Attacks, [id number] Additional Instructions: You are seen in the emergency room for anxiety and panic attack. You were given Xanax in the emergency room to treat symptoms. You were also given Zofran for nausea. Please follow-up with Dr. Vick this week for further management. Return to emergency room if you have worsening symptoms or concerns. EMERGENCY DEPARTMENT GENERAL DISCHARGE INSTRUCTIONS Thank you for coming to [facility] (ED) today and trusting us with you care. We trust that you had a positivie experience in our Emergency Department. If you wish to speak to the department management, you may call the director at [phone]. YOUR FOLLOW UP INSTRUCTIONS ARE FOLLOWS: 1. Do you have a private Doctor? If you do not have a private doctor, please ask for a resource list of physicians or clinics that may be able to assist you with follow up care. 2. The Emergency Physician has interpreted your x-rays. The X-Ray specialist will also review them. If there is a change in the findings, you will be notified in 48 hours when at all possible. 3. A lab test or culture has been done, your results will be reviewed and you will be notified if you need a change in treatment. ADDITIONAL INSTRUCTIONS AND INFORMATION: 1. Your care today has been supervised by a physician who is specially trained in emergency care. Many problems require more than one evaluation for a complete diagnosis and treatment. We recommend that you schedule your follow up appointment as recommended to ensure complete treatment of you illness or injury. If you are unable to obtain follow up care and continue to have a problem, or if your condition worsens, we recommend that you return to the ED. 2. We are not able to safely determine your condition over the phone nor are we able to give sound medical advice over the phone. For these safety reasons, if you call for medical advice we will ask you to come to the ED for further evaluation. 3. If you have any questions regarding these discharge instructions please call the ED at [phone]. SAFETY INFORMATION: In the interest of safety, wellness, and injury prevention; we encourage you to wear your sealbelt, if you smoke; quite smoking, and we encourage family to use a protective helmet for bicycling and other sporting events that present an increased risk for head injury. IF YOUR SYMPTOMS WORSEN OR NEW SYMPTOMS DEVELOP, OR YOU HAVE CONCERNS ABOUT YOUR CONDITION; OR IF YOUR CONDITION WORSENS WHILE YOU ARE WAITING FOR YOUR FOLLOW UP APPOINT MENT; EITHER CONTACT YOUR PRIMARY CARE DOCTOR, THE PHYSICIAN WHOSE NAME AND NUMBER YOU WERE GIVEN, OR RETURN TO THE ED IMMEDIATELY. MARCIA HUITRON APRN Dec 20, 2020 15:17 JOHANA PHIPPS DO Dec 22, 2020 09:21
[2020-12-20] MEDS ORDERED: ACETAMINOPHEN 500 MG TABLET PO ONE ×2 (15:26→15:30)
== END 2020-12-20 15:31 | disposition home or self-care (01) ==
LOC: ER 14:45
DX: F41.9 Anxiety disorder, unspecified (principal); M19.90 Unspecified osteoarthritis, unspecified site; F03.90 Unspecified dementia, unspecified severity, without behavioral disturbance, psychotic disturbance, mood disturbance, and anxiety; F32.9 Major depressive disorder, single episode, unspecified; I10 Essential (primary) hypertension; F17.210 Nicotine dependence, cigarettes, uncomplicated; Z88.1 Allergy status to other antibiotic agents
CPT/HCPCS: 99284; Q0162